=== PATIENT | male | born 1985 ===

== ENCOUNTER 2022-01-23 13:12 | Emergency (ER) | payer OTHER | END 2022-01-24 02:20 | disposition left against medical advice (07) | LOC: ED 13:12 | DX: R11.10 Vomiting, unspecified (principal); Z53.21 Procedure and treatment not carried out due to patient leaving prior to being seen by health care provider; W19.XXXA Unspecified fall, initial encounter; Y93.89 Activity, other specified; Y92.89 Other specified places as the place of occurrence of the external cause; Y99.8 Other external cause status | CPT/HCPCS: 93005 ==